=== PATIENT | female | born 1990 | race Caucasian/White ===

== ENCOUNTER 2023-10-15 20:14 | Emergency (ER) | payer MEDICAID, SELFPAY ==
[2023-10-15 20:16] VITALS: BP 121/99; PULSE 100; RESP 18; TEMP 36.7; O2SAT 100; BMI 23.0
--- NOTE | 2023-10-15 20:27 | ED.RN ---
PT INFORMED THIS NURSE SHE WANTS OFF CRACK AND METH.
--- NOTE | 2023-10-15 21:22 | EDS_ITS ---
HPI <Racheal Caldera RN - Last Filed: 10/15/23 22:14> History of Present Illness Chief Complaint: Substance Abuse Informant: patient Onset/Context/Timing Onset: Today Current Severity: Mild Maximum Severity: Mild Narrative Narrative: Patient is a 33-year-old female who presents to the ED requesting detox from methamphetamines, crack cocaine, and alcohol. Patient reports she has been clean for 38 days after spending 28 days at a rehab facility in [facility]. She was discharged from that facility on 10/07/2023. She relapsed on 10/12/2023. She reports her last use of meth was 10/14/2023 in which it was snorted. She reports her last use of crack 10/12/2023 in which she smoked. She reports recently drinking 1 pint of fireball and two 24 ounce twisted teas daily. Last alcohol use was 10/12/2023. In addition to drug and alcohol use, patient reports past medical history of bipolar 1, schizoaffective disorder, mitral valve regurgitation, congestive heart failure in 2020 for which she received an AICD. This was attributed to drug use. Patient denies endocarditis. Patient had her AICD removed 07/2023 as she had hallucinations that people were speaking to her through her AICD. Patient sees cardiology at [facility] in [place]. Patient does report that she takes for mental health medications as prescribed. Prior similar symptoms: No Recent Illness/Hospitalization: Yes PFSH <Racheal Caldera RN - Last Filed: 10/15/23 22:14> PFSH Medical History Alcohol abuse Anxiety and depression CHF (congestive heart failure) ICD (implantable cardioverter-defibrillator) malfunction Mitral valve regurgitation Schizoaffective disorder Substance abuse Tobacco use Home Medications cariprazine 3 mg capsule (Vraylar) 3 mg PO DAILY 10/15/23 [History Last Taken Unknown] lithium carbonate 150 mg PO 2XD 10/15/23 [History Last Taken Unknown] metoprolol succinate 50 mg capsule sprinkle, ext. release 24 hr 50 mg PO DAILY 10/15/23 [History Last Taken Unknown] trazodone 100 mg tablet 100 mg PO QHS PRN sleep 10/15/23 [History Last Taken Unknown] Allergy/AdvReac Type Severity Reaction Status Date / Time No Known Allergies Allergy Verified 10/15/23 20:18 Family History (Updated 10/15/23 @ 21:[address] Yohana Paula MD) Mother Anxiety and depression Father Heart disease CAD (coronary artery disease) Myocardial infarction Hypertension Alcohol abuse Surgical History (Updated 10/15/23 @ 21:[address] Yohana Paula MD) History of tonsillectomy and adenoidectomy S/P ICD (internal cardiac defibrillator) procedure Social History (Updated 10/15/23 @ 21:[address] Yohana Paula MD) household members: family Smoking Status: Current every day smoker tobacco type: cigarettes alcohol intake: current alcohol intake frequency: 3 or more drinks per day details: Recent detox for EtOH, drank again with last Friday (Fireball, twisted tea) substance use type: crack/cocaine and methamphetamine ROS <Racheal Caldera RN - Last Filed: 10/15/23 22:14> ROS ED Constitutional Constitutional ED: Denies chills, fever(s) or sweats Eyes Eyes: Denies blurry vision, change in vision or diplopia ENT ENT ED: Denies ear pain, rhinorrhea or sore throat Cardiovascular Cardiovascular: Denies chest pain, orthopnea, palpitations or racing heartbeat Respiratory/Chest Respiratory/Chest: Denies cough, dyspnea, dyspnea on exertion or orthopnea Gastrointestinal Gastrointestinal: Denies abdominal pain, constipation, diarrhea, melena, nausea or vomiting Genitourinary Genitourinary ED: Reports LMP (females 10-50) Details: Comment: (09/22/2023); Denies dysuria or hematuria Musculoskeletal Musculoskeletal: Denies arthralgias or myalgias Integumentary Denies abscess, Abrasions or rash Neurologic Neurologic: Denies headache(s), paresthesias or weakness Psychiatric Psychiatric: Reports anxiety Hematologic/Lymphatic Hematologic/Lymphatic: Reports systems reviewed and no addt'l complaints, except as documented EXAM <Racheal Caldera RN - Last Filed: 10/15/23 22:14> Physical Exam Narrative Exam Narrative: Patient awake, alert, anxious, wringing hands, maintains eye contact. Const Vital Signs: 10/15/23 20:16 Temperature 98.0 F Temperature Source Temporal Pulse Rate 100 Respiratory Rate 18 Blood Pressure 121/99 H Blood Pressure Mean 106 Pulse Ox 100 Oxygen Delivery Method Room Air Positive well nourished and well developed General Appearance ED: well developed and NAD HEENT Reports moist mucous membranes Eyes PERRL and EOMs intact bilaterally Neck no lymphadenopathy, supple and no JVD Chest Wall inspection of chest normal and palpation of chest normal Resp normal respiratory effort and clear to auscultation bilaterally Auscultation: Negative for rales, rhonchi or wheezes Cardio regular rate, regular rhythm, S1 normal heart sound and S2 normal heart sound GI normal to inspection, nondistended, normoactive bowel sounds, non-tender and non-distended Palpation: soft Back/Spine Cervical Spine: Negative for cervical spine tenderness Thoracic Spine / Upper Back: Negative for thoracic spinal tenderness Lumbar Spine / Lower Back: Negative for lumbar spinal tenderness Extremity normal to inspection General Extremety ED: Negative for edema or tenderness General Extremity: Negative for edema Neuro oriented x3 and CN's II-XII intact bilaterally Sensorium / Orientation: alert Motor Exam: strength 5/5 throughout Psych Mood & Affect: anxious Skin no rashes or lesions noted, no wounds and skin turgor normal <Dr. Hasmukh Glynn MD - Last Filed: 10/15/23 22:19> Physical Exam Const Vital Signs: 10/15/23 20:16 Temperature 98.0 F Temperature Source Temporal Pulse Rate 100 Respiratory Rate 18 Blood Pressure 121/99 H Blood Pressure Mean 106 Pulse Ox 100 Oxygen Delivery Method Room Air MDM <Racheal Caldera RN - Last Filed: 10/15/23 22:14> [facility] Narrative Medical decision making narrative: Labwork obtained to evaluate for leukocytosis, anemia, and electrolyte derangement. Spoke with hospitalist who came to see patient to discuss admission pending lab work. History & Record Review Discussion w/independent historian: Patient Differential Diagnosis Differential Diagnosis: Alcohol withdrawal Management Discussion w/another healthcare provider: Other (Dr. Glynn, ED provider) Treatment and Re-Evaluation :: Patient became agitated while in the ED. Geodon [address] Glynn. <Dr. Hasmukh Glynn MD - Last Filed: 10/15/23 22:19> [facility] Narrative Medical decision making narrative: Labwork obtained to evaluate for leukocytosis, anemia, and electrolyte derangement. Spoke with hospitalist who came to see patient to discuss admission pending lab work. I have personally performed a face to face assessment of the patient and have reviewed the BUSTER Note. I performed a substantive portion of the visit including all aspects of the following. My vazquez findings include: History is 33-year-old female history of alcohol and drug abuse including cocaine and methamphetamines. Presents requesting detox. She does have a history of schizoaffective disorder also. Exam is [33-year-old female no acute distress vital signs stable afebrile. H EENT exam unremarkable. Neck nontender. Lungs clear to auscultation. Heart regular rhythm no murmur. Rate about 95. Abdomen soft nontender. Moving all 4 extremities. Nontender. No edema. Neurologically she is awake alert no focal motor deficits.] Medical Decision Making [I spoke to the hospitalist. Patient be admitted for detox. Or attempting an IV and labs due to her history of alcohol abuse.] Other additions or changes: [Prior to admission patient got very anxious and upset. I discussed with her medications. She was willing to take Geodon. She will be given injection IM. Currently tearful but acting appropriately at 10:19 pm] Discharge Plan Dx/Rx/DC Orders Clinical Impression: Alcohol abuse, Admitted to alcohol detoxification center, Drug abuse, History of schizoaffective disorder Disposition Disposition: Acute Care Hospital [facility]
--- NOTE | 2023-10-15 21:28 | HP.PCM.HOS_ITS ---
HPI - General General Date of Admission: 10/15/23 Date of Service: 10/15/23 Chief Complaint: Request meth, crack cocaine and EtOH withdrawal treatment HPI Narrative The patient is a 33 y/o F w/ PMHx: Tobacco use, Cardiomyopathy with HF suspected rEF s/p prior AICD and eventual removal with Valvular Heart Disease (MR per patient report) secondary to reported substance abuse, Schizoaffective disorder/Anxiety and Depression, EtOH abuse (Heavy prior, was recently in rehab x 30 days, started EtOH intake again Friday), Polysubstance abuse (methamphetamine snorted most recently the day prior, crack cocaine smoked most recently Friday) who presents to the [facility] ED on 10/15/23 with requested treatment for her EtOh as well as polysubstance abuse. Currently she notes symptoms include increased fatigue, malaise, emotional lability, insomnia, tactile disturbances as well as mild tremors but these seem to be abating she notes. Workup in the ED included T98, heart rate 100, BP 121/99, respiratory rate 18, on a percent on room air, pending UDS, serum, CBC, CMP as well as blood alcohol level upon evaluation. Discussed with ED physician and as long as testing is negative will continue with admission to [facility]. [facility] Medical History Alcohol abuse Anxiety and depression CHF (congestive heart failure) ICD (implantable cardioverter-defibrillator) malfunction Mitral valve regurgitation Schizoaffective disorder Substance abuse Tobacco use Home Medications cariprazine 3 mg capsule (Vraylar) 3 mg PO DAILY 10/15/23 [History Last Taken Unknown] lithium carbonate 150 mg PO 2XD 10/15/23 [History Last Taken Unknown] metoprolol succinate 50 mg capsule sprinkle, ext. release 24 hr 50 mg PO DAILY 10/15/23 [History Last Taken Unknown] trazodone 100 mg tablet 100 mg PO QHS PRN sleep 10/15/23 [History Last Taken Unknown] Allergy/AdvReac Type Severity Reaction Status Date / Time No Known Allergies Allergy Verified 10/15/23 20:18 Family History (Updated 10/15/23 @ 21:[address] Yohana Paula MD) Mother Anxiety and depression Father Heart disease CAD (coronary artery disease) Myocardial infarction Hypertension Alcohol abuse Surgical History (Updated 10/15/23 @ 21:[address] Yohana Paula MD) History of tonsillectomy and adenoidectomy S/P ICD (internal cardiac defibrillator) procedure Social History (Updated 10/15/23 @ 21:[address] Yohana Paula MD) household members: family Smoking Status: Current every day smoker tobacco type: cigarettes alcohol intake: current alcohol intake frequency: 3 or more drinks per day details: Recent detox for EtOH, drank again with last Friday (Fireball, twisted tea) substance use type: crack/cocaine and methamphetamine ROS ROS Narrative Admission Review of Systems: CONSTITUTIONAL: No weight loss, fever, chills, + weakness or fatigue. HEENT: Eyes: No visual loss, blurred vision, double vision or yellow sclerae. Ears, Nose, Throat: No hearing loss, sneezing, congestion, runny nose or sore throat. SKIN: No rash or itching, lesions, wounds except occasional abrasions, picks regions. CARDIOVASCULAR: No chest pain, chest pressure or chest discomfort, palpitations, edema, orthopnea, syncopal events. RESPIRATORY: No shortness of breath, cough or sputum, wheezing, hemoptysis. GASTROINTESTINAL: + anorexia, nausea. No vomiting or diarrhea, abdominal pain, melena, BRBPR. GENITOURINARY: No dysuria, frequency, urgency or retention. NEUROLOGICAL: + Abating tactile disturbances, tremors. No headache, dizziness, syncope, paralysis, ataxia, numbness or tingling in the extremities, focal weakness, change in bowel or bladder control, seizure. MUSCULOSKELETAL: + muscle, back pain, joint pain or stiffness. HEMATOLOGIC: No anemia, bleeding or bruising. LYMPHATICS: No enlarged nodes. No history of splenectomy. PSYCHIATRIC: + History of schizoaffective disorder/anxiety depression, recent worsened emotional lability and insomnia. ENDOCRINOLOGIC: No reports of sweating, cold or heat intolerance. No polyuria or polydipsia. ALLERGIES: No history of asthma, hives, eczema or rhinitis. Vital Signs Vital Signs Vital Signs: 10/15/23 20:16 Temperature 98.0 F Temperature Source Temporal Pulse Rate 100 Respiratory Rate 18 Blood Pressure 121/99 H Blood Pressure Mean 106 Pulse Ox 100 Oxygen Delivery Method Room Air Weight Weight: 147 lb 3 oz Body Mass Index (BMI) 23.0 Physical Exam Narrative Physical Examination: General: Awake, alert, oriented x 3 and cooperative, seated upright in the ED bed, fatigued, flat affect. Skin: Normal color, normal turgor, no icterus, no cyanosis except occasional staged ecchymoses. HEENT: AT/NC, EOMI, PERRLA, dry MM, no carotid bruits or JVD noted. Lungs: CTA bilaterally, moderate effort, mild decrease BL bases, no rales, ronchi or wheezing. Heart: Regular rate and rhythm; no gallop, rub audible. Abdomen: Soft, mild generalized discomfort with no rebound or guarding, no marked distention, mildly hyperactive BS, no appreciated HSM. Extremities: No cyanosis, clubbing, or edema. Neurological: Patient awake, alert, oriented as noted, cognitive function intact; pupils equally reactive to light and accommodation, cranial nerves grossly normal, moving all 4 extremities, no focal deficits, minimal tremors, notes recent tactile disturbances abating, mildly restless, strength mildly to moderately globally decreased secondary to acute withdrawal complaints. Psychiatric: Affect appears flat, fatigued, notable emotional lability witnessed by ED staff, underlying history of anxiety and depression as well as schizoaffective disorder. Assessment & Plan Assessment/Plan (1) Admitted to alcohol detoxification center: PLAN: Plan The patient is a 33 y/o F w/ PMHx: Tobacco use, Cardiomyopathy with HF suspected rEF s/p prior AICD and eventual removal with Valvular Heart Disease (MR per patient report) secondary to reported substance abuse, Schizoaffective disorder/Anxiety and Depression, EtOH abuse (Heavy prior, was recently in rehab x 30 days, started EtOH intake again Friday), Polysubstance abuse (methamphetamine snorted most recently the day prior, crack cocaine smoked most recently Friday) who presents to the [facility] ED on 10/15/23 with requested treatment for her EtOH abuse as well as polysubstance abuse. #1. Acute EtOH Withdrawal, Improving, Last drink Friday: Given patient's substance abuse history with recent alcohol withdrawal treatment with restart of alcohol intake on Friday although symptoms are mild per discussion with patient will admit to medical surgical floor to be cautious, routine labs obtained in the ED upon presentation and as noted pending upon evaluation. Given interest in sobriety, as needed gabapentin, Catapres, Bentyl, Vistaril, IV fluids, IV antiemetics, Tylenol as needed for pain. Will consult Case management for assistance for transition to next level of rehabilitation care. Mag, phos pending. Maintain on CIWA protocol concurrently. Per lengthy discussion with patient given symptoms currently seem to be abating and are not severe preference to use CIWA only and avoid phenobarbital scheduled taper at this time but as discussed low threshold to start if concerns arise. #2. Cardiomyopathy, HF suspected rEF, Valvular Heart Disease: s/p prior AICD and eventual removal with concurrent patient reported MR, prior on metoprolol and losartan, never on asa or statin per her report, noted to be drug related, transitioned to metoprolol ongoing only, encouraged continued outpatient follow- up with her [employer] as previously arranged. #3. Polysubstance Abuse w/ Cocaine and Methamphetamines: Although patient currently denying any IV drug abuse given polysubstance abuse discussed risks and patient is amenable to obtaining HIV, hepatitis and syphilis testing at this time. Case management consulted as noted. Continue symptomatic treatment with PRN agents. #4. Schizoaffective disorder/anxiety and depression: We will continue patient home Vraylar and lithium regimen as well as trazodone nightly as needed for insomnia. Encourage early close follow-up with her psychiatrist. #5. Tobacco Abuse: Encouraged cessation, inpatient consultation per RT, NR if desired. #6. DVT prophylaxis: Low risk for type of admission, encourage ambulation. Charges/Coding Visit Charges Inpatient E&M: 39955 Init Hosp L2
--- NOTE | 2023-10-15 22:15 | ED.RN ---
This RN is the third nurse to attempt to obtain and IV and blood draw on patient. While trying to start an IV patient started twitching and getting restless in bed. Pt then started screaming i know you fucking hear it Pt starts crying saying the voices are telling lies about her to other people. Pt mumbling to herself you say I'm in love with my sisters boyfriend your saying i slept with my nephew Pt not making sense, pt pulling at her hair. This RN attempts to calm patient down. Pt starts yelling i fucking hate this i dont want to fucking be here i fucking hate being me . Pt encouraged to call her mother who she states is her support system. That seemed to calm her down a bit, Dr Glynn at bedside to re-evaluate patient. Medication offered to patient. The decision to cancel admission and consult crisis was made. Dr Paula made aware. HS made aware.
[2023-10-15] MEDS: Ziprasidone IM 20 MG/ML VIAL IM (22:26)
[2023-10-15 22:31] VITALS: BP 120/92; PULSE 85; RESP 17; O2SAT 100
[2023-10-15 22:47] LABS: Amphetamine Urine VISTA POSITIVE (<1000 ng/mL); Barbiturate Urine VISTA NEGATIVE (< 200 ng/mL); Benzodiazepine Urine VISTA NEGATIVE (< 200 ng/mL); Cocaine Urine VISTA POSITIVE (< 300 ng/mL); Ecstacy Urine VISTA POSITIVE (< 500 ng/mL); Methadone Urine VISTA NEGATIVE (< 300 ng/mL); PCP Urine VISTA NEGATIVE (< 25 ng/mL); THC Urine VISTA NEGATIVE (< 50 ng/mL); Vista UDS pH Range 4
--- NOTE | 2023-10-15 22:57 | ED.RN ---
DINA FONGRN, AND THIS NURSE ENTERED PT'S ROOM PT WAS GETTING DRESSED IN STREET CLOTHES, PT WAS YELLING AND SCREAMING ABOUT HEARING VOICES AND BEING IN LOVE WITH FAMILY MEMBERS AND HAVING SEX WITH SISTER'S BOYFRIEND, ETC. PT CONTINUED TO ESCALATE AND DEMANDED TO LEAVE [facility]. PT WAS YELLING THAT SHE KNOWS THE STAFF CAN HEAR THE VOICES AND THAT'S HOW YOU SOLVE THE PROBLEM. PT DOES NOT MAKE SENSE AND IS EXPRESSING THAT SHE IS NOT MENTALLY ABLE TO CARE FOR SELF.
--- NOTE | 2023-10-15 23:03 | ED.RN ---
PT IS BACK IN BED AND COVERED WITH BLANKETS, PT RESTING QUIETLY AT THIS TIME. RESPIRATIONS EVEN AND UNLABORED.
[2023-10-15 23:26] LABS: Absolute Lymphocyte Count 1.96 X10^3/uL (0.83-4.51); Absolute Neutrophil Count 3.3 X10^3/uL (2.0-7.7); Basophil# 0.04 X10^3/uL; Basophil% 0.7 % (0-1); Eosinophil# 0.07 X10^3/uL; Eosinophils% 1.2 % (0-5); Hematocrit 40.7 % (37-47); Hemoglobin 13.9 g/dL (12.0-15.0); Lymphocyte # 1.96 X10^3/ul (0.83-4.51); Lymphocyte % 33.5 % (19-41); Mean Corp Hgb Conc 34.2 g/dL (32-36); Mean Corpuscular Hgb 29.8 pg (27.0-32.0); Mean Corpuscular Volume 87.3 fL (81-99); Mean Platelet Vol. 9.7 fl (6.2-12.0); Monocyte# 0.52 X10^3/uL; Monocyte% 8.9 % (0-10); NRBC Flagged by Analyzer 0 % (0-5); Neutrophil # 3.25 X10^3/uL (2.7-7.7); Neutrophil % 55.5 % (47-70); Platelet Count 229 K/mm3 (150-450); RBC Distribution Width CV 11.9 % (11.6-14.6); RBC Distribution Width SD 37.8 fl (35.1-43.9); Red Blood Count 4.66 M/mm3 (4.2-5.4); White Blood Count 5.9 K/mm3 (4.4-11.0)
[2023-10-15 23:38] LABS: Internal QC Validated? YES +Cl - CLEAR BKGD; Pregnancy, Serum, hCG Quali. NEGATIVE Negative
[2023-10-15 23:39] LABS: Alcohol, Blood (Medical)-Serum < 3.0 mg/dL
[2023-10-15 23:44] LABS: ALB/GLOB Ratio 1.5 RATIO (0.9-2.4); AST(SGOT) 31 U/L (15-37); Alanine Aminotransfer ALT/SGPT 146 U/L (13-56); Albumin, Serum 4.3 g/dL (3.2-5.0); Alkaline Phosphatase 68 U/L (45-117); Anion Gap 9 (5-15); BUN 15 mg/dL (7-18); BUN/Creat Ratio 25.3 RATIO (10-20); Calcium,Total 8.9 mg/dL (8.5-10.1); Chloride 110 mmol/L (98-107); Creatinine, Serum 0.59 mg/dL (0.55-1.02); EST Glomerular Filtration Rate 123 mL/min (>60); Est Glom Filt Rate - Afr Amer 149 mL/min (>60); Estimated Creatinine Clearance 130.65 ml/min; Globulin 2.9 g/dL (2.2-4.2); Glucose 104 mg/dL (74-106); Magnesium 2.1 mg/dL (1.6-2.6); Phosphorus 3.5 mg/dL (2.5-4.9); Potassium 3.1 mmol/L (3.5-5.1); Protein, Total 7.2 g/dL (6.4-8.2); Sodium Level 141 mmol/L (136-145)
--- NOTE | 2023-10-15 23:54 | NURSING ---
CALLED [facility] AT [phone] AND FAXED CHART
[2023-10-16] VITALS (8 sets, daily range): BP systolic 122–133; BP diastolic 60–96; PULSE 68–97; RESP 14–18; TEMP 35.9–36.4; O2SAT 96–99
[2023-10-16 00:10] LABS: HIV - WCH Non-Reactive (Nonreactive); Syphilis Antibodies Non-reactive
--- NOTE | 2023-10-16 07:31 | EKG12_ITS ---
Test Reason : Blood Pressure : / mmHG Vent. Rate : 079 BPM Atrial Rate : 079 BPM P-R Int : 142 ms QRS Dur : 088 ms QT Int : 376 ms P-R-T Axes : 065 067 043 degrees QTc Int : 431 ms Normal sinus rhythm Normal ECG Confirmed by Judah Buck ([id number]), marketing information manager EDWIN BHATIA ([id number]) on 10/20/2023 1:53:25 PM Referred By: Confirmed By:Judah Buck
--- NOTE | 2023-10-16 07:34 | ED.RN ---
NO OLD EKG
--- NOTE | 2023-10-16 07:35 | ED.RN ---
REFERRED TO [facility], THEY REQUESTED AN EKG AND CPK LEVEL BE FAXED TO THEM FOR REVIEW.
[2023-10-16 08:25] LABS: CPK Total, Creatine Kinase 62 U/L (26-192)
[2023-10-16 18:50] LABS: Lithium < 0.20 mmol/L (0.60-1.20)
[2023-10-16] MEDS: Lithium Carbonate 150 MG Capsule PO (18:51)
[2023-10-16] MEDS: CARIPRAZINE HCL 1.5 MG CAPSULE 3 MG PO (18:51)
--- NOTE | 2023-10-16 19:08 | ED.RN ---
[email or web address] ATTEMPTED TO CALL REPORT TO [facility] BUT THEY STATED THE NURSES WERE DOING NURSE TO NURSE REPORT AND NEED ME TO CALL BACK IN ABOUT 30 MINS
--- NOTE | 2023-10-16 19:40 | ED.RN ---
REPORT CALLED TO RN AT [facility]
== END 2023-10-16 20:48 ==
LOC: ED 21:27 → MS3 22:13
PROVIDERS: Emergency Medicine; Family Medicine; Emergency Provider Emergency Medicine; Visit Provider Emergency Medicine
DX: F10.10 Alcohol abuse, uncomplicated (principal); F25.9 Schizoaffective disorder, unspecified; I50.9 Heart failure, unspecified; I42.9 Cardiomyopathy, unspecified; F31.9 Bipolar disorder, unspecified; F17.210 Nicotine dependence, cigarettes, uncomplicated; Z95.810 Presence of automatic (implantable) cardiac defibrillator
CPT/HCPCS: 36415; 80053; 80178; 80307; 80320; 82550; 83735; 84100; 84703; 85025; 86703; 86780; 93005; 96372; 99284; A4216; G0480; J3486